=== PATIENT | male | born 1975 | race Caucasian/White ===

== ENCOUNTER → 2019-06-03 | Day surgery (SDC) | payer OTHER ==
[~2019-06-03] VITALS: Ht 190.5 cm; Wt 86.1 kg
[2019-06-03] VITALS (7 sets, daily range): BP systolic 123–145; BP diastolic 73–86; PULSE 62–88; TEMP 97.1–97.4
[~2019-06-03] MED LIST: MOBIC 7.5MG7.5 MG PO; NORCO 325 MG-51 TAB PO
--- NOTE | 2019-06-03 06:36 | NUR ---
TO RM 6 AT 0607- CALL LIGHT IN REACH AT BEDSIDE.
--- NOTE | 2019-06-03 09:35 | NUR ---
TO RM 7 PER CART FROM PACU. ALERT ORIENTED X3, TALKING TO STAFF AND . C/O PAIN 10/27. DRESSINGS CLEAN DRY INTACT. SIPPING ON WATER FROM PACU. REQUESTED COFFEE
--- NOTE | 2019-06-03 09:55 | NUR ---
RECEIVED CRACKERS C/O PAIN BEING THE SAME 10/27- RECEIVED NORCO 5MG 1 TAB. SITTING UP AND SIPPING ON COFFEE.
--- NOTE | 2019-06-03 10:10 | NUR ---
PATIENT RESTING QUIETLY WITH EYES CLOSED AWAKENS EASILY
--- NOTE | 2019-06-03 10:25 | NUR ---
PATIENT SITTING UP AND SIPPING ON COFFEE. C/O ABDOMINAL DISCOMFORT " ACHIE PAIN" ENCOURAGED PATIENT TO PASS GAS. HIS STATED HE HAS BEEN BELTCHING.
--- NOTE | 2019-06-03 10:45 | NUR ---
BANDAIDES ARE STILL INTACT WITHOUT DRAINAGE. NO OTHER CHANGES
--- NOTE | 2019-06-03 10:50 | NUR ---
AMBULATED TO BATHROOM, VOIDED AND TOLERATED WELL. AMBULATED BACK TO CART.OFFERED PATIENT TO REST OR GO HOME. PATIENT REQUESTED TO GO HOME. RECEIVED MUFFIN.
--- NOTE | 2019-06-03 11:00 | NUR ---
RECEIVED DISCHARGE INSTRUCTIONS AND VERBALIZED UNDERSTANDING. SIGNED DISCHARGE PAPER WORK. RECEIVED 2ND CUP OF COFFEE. IV DISCONTINUED BY STUDENT.
--- NOTE | 2019-06-03 11:20 | NUR ---
DISCHARGED PER WC BY NURSING STAFF TO PRIVATE CAR IN CARE OF .
== END ==
LOC: SDCO 06:00
DX: K40.20 Bilateral inguinal hernia, without obstruction or gangrene, not specified as recurrent (principal); Z98.52 Vasectomy status
CPT/HCPCS: C1781; J0690; J1100; J1885; J2405; J2704; J3010; J7120

== ENCOUNTER → 2021-09-24 | Outpatient (CLI) | payer BC ==
[2021-09-24 18:17] LABS: CLOSTRIDIUM DIFF A/B POS; CLOSTRIDIUM DIFF A/B INTERP Toxigenic C.diff POS
== END ==
LOC: COL.LAB 15:58 → ZCOL.LAB 15:58
PROVIDERS: Physician Assistant
DX: R19.7 Diarrhea, unspecified (principal)